=== PATIENT | female | born 1990 | race Caucasian/White ===

== ENCOUNTER 2017-03-26 16:46 | Inpatient (IN) | payer MEDICAID ==
[2017-03-26] MEDS ORDERED: Lactated Ringers 1,000 ML IV SCH (17:45)
[2017-03-26] MEDS ORDERED: Oxytocin 10 Units/1 ML SDV IM ONE (21:15)
[2017-03-26] MEDS ORDERED: Lidocaine 1% 20 ML MDV INJECT ONE (21:15)
[2017-03-26] MEDS ORDERED: Ibuprofen 600 MG Tab PO PRN (23:07)
--- NOTE | 2017-03-27 11:13 | PN ---
DATE SEEN: 03/27/2017 SUBJECTIVE: Marilin Gallegos is a 27-year-old 3, para 3, female, day #1. Doing well. Minimal plantar discomfort. Cramps coming and going. Nursing with good success. Lochia and flow are moderating. Up and active. Analgesics not required. Hemoglobin 12.0 g percent. OBJECTIVE: U-1 tone satisfactory. Perineum intact. day #1, no problems. PLAN: Discharge likely tomorrow, routine care and intervention. /[id number] /APRIL
--- NOTE | 2017-03-27 12:24 | HP ---
ADMISSION DATE: 03/26/2017 HISTORY OF PRESENT ILLNESS: Marilin Gallegos is a 27-year-old 3, para 2-0-0-2 female, 40+ weeks gestation, admitted to [facility] [place]. [place] off and on for several days' duration. Spontaneous rupture of membranes mid afternoon, at about 1500 hours. By observation, clear fluid. Upon admission, vital signs were stable, contractions were present, quality labor appeared to be in place, fluid was slight meconium tinge. It was category 2 tracing, responded nicely to fluids and change in position to category 1. Intravenous line was placed and intravenous fluids were given, capped and allowed to ambulate. Upon admission, she was found to be 5 cm. Labor progressed well, descent was appropriate, dilatation was fine, was in the tub for a time, got up, was completely dilated. I was asked to attend the delivery. Second stage progressed well. Maternal effort was initially modified. When commitment was present, 3 good quality pushes, delivered in ADELINA presentation. Nuchal cord was present, attempting to reduce, she pushed and delivered the baby without difficulty. Mouth and oropharynx were suctioned. The child was placed on mom's tummy. Cord was stripped toward the baby. Tone appeared to be decreased, cord was clamped, 30 seconds duration, child was taken for warming and resuscitation. Female infant, 9 pounds 1 ounce, scores 8 and 9. Three-cord vessels identified and cord blood was obtained for investigations as indicated, there was spontaneous placental separation, three-cord vessel was intact. 10 units of Pitocin was given intramuscular. The perineum was inspected, small second degree tear, infiltrated with 2% lidocaine, and repaired in a complex fashion with 2-0 chromic suture. Surgical results were excellent. Blood loss was 150 mL. ASSESSMENT: 1. Term intrauterine . 2. Spontaneous rupture of membranes and meconium fluid, minimal. 3. Spontaneous labor. No analgesics or intervention. 4. Vaginal delivery. 5. No episiotomy, second-degree tear. 6. A 9 pounds 1 ounce female , scores 8 and 9. 7. Planned nursing. PLAN: Routine course. Expect no problems or concerns. /[id number] /APRIL
[2017-03-28 08:13] VITALS: BP 112/63
--- NOTE | 2017-03-29 01:06 | DISCH ---
DISCHARGE DATE: 03/28/2017 SUBJECTIVE: Marilin Gallegos is a 27-year-old 3, para 3 female, two days . Up, ambulating, doing well. Minimal discomfort, minimal pain, minimal perineal discomfort. Lochia and flow are moderating. hemoglobin 12.0. OBJECTIVE: U-two tone satisfactory, perineum intact. ASSESSMENT: day two, no problems. PLAN: Discharge home. Lengthy instructions. vitamin 1 daily. Well nursing. Ibuprofen or Tylenol allowed for analgesics. Recommendations, limitations, and care issues. Six week followup. /[id number] LORENZO/APRIL
== END 2017-03-28 11:42 | disposition home or self-care (01) | DRG 775 ==
LOC: FB.OB 16:46 → FB.OBCHECK 16:46 → FB.OB 16:58
PROVIDERS: ADMIT Family Medicine; ATTEND Family Medicine
PROC: 10E0XZZ Delivery of Products of Conception, External Approach (ICD-10-PCS; principal; 2017-03-27)
PROC: 0KQM0ZZ Repair Perineum Muscle, Open Approach (ICD-10-PCS; 2017-03-27)
DX: O69.81X0 Labor and delivery complicated by cord around neck, without compression, not applicable or unspecified (principal); O77.0 Labor and delivery complicated by meconium in amniotic fluid; O70.1 Second degree perineal laceration during delivery; Z3A.40 40 weeks gestation of pregnancy; Z37.0 Single live birth
CPT/HCPCS: 36415; 85014; 85018; J2590; J7120